=== PATIENT | male | born 1950 | race Caucasian/White ===

== ENCOUNTER 2019-11-08 12:18 | Outpatient (CLI) | payer MEDICARE ==
[~2019-11-08 12:18] MED LIST: APIX5TAB PO; ATOR10TA PO; ENAL10TA PO; FENO145T19 PO; SOTA80TA8 PO
== END 2019-11-08 23:59 | disposition home or self-care (01) ==
LOC: CFH 12:18
PROVIDERS: ATTEND Nurse Practitioner Family
DX: I65.29 Occlusion and stenosis of unspecified carotid artery (principal); I10 Essential (primary) hypertension
CPT/HCPCS: 78452; 93017; A9502

== ENCOUNTER 2020-01-06 14:30 | Inpatient (IN) | payer MEDICARE ==
[~2020-01-06] VITALS: Ht 188 cm; Wt 123.0 kg
[~2020-01-06 14:30] MED LIST changes: +ASCO10004 PO; +ASCO1CAP2 PO; +CALCIUM PO; +CHOL3000 PO; +ENAL5TAB PO; +FENO145T32 PO; +MAG PO; +OMEG-170 PO; +SAW/1TAB2 PO; +SILD20TA2 PO; +UBID100C10 PO; +VITAMIN E PO; +ZINC PO; +ZOLP-413 PO
[2020-01-06] MEDS ORDERED: LACTATED RINGERS 1,000 ML IV SCH (14:42)
[2020-01-06] MEDS ORDERED: MIDAZOLAM 1 MG/ML, 2ML ONE (14:44)
[2020-01-06] MEDS ORDERED: CHLORHEXIDINE 15 ML UDC MM STA (14:48)
[2020-01-06] MEDS ORDERED: BUPIVACAINE/PF-EPI 0.5% 1:200K ONE (15:01)
[2020-01-06] MEDS ORDERED: PAPAVERINE 30 MG/ML, 2ML ONE (15:01)
[2020-01-06] MEDS ORDERED: FENTANYL PF 250 MCG/5ML ONE (15:01)
[2020-01-06] MEDS ORDERED: PROTAMINE SULFATE 10 MG/ML, 5ML ONE (15:01)
[2020-01-06] MEDS ORDERED: HEPARIN 1,000 UNITS/ML, 10ML ONE (15:01)
[2020-01-06] MEDS ORDERED: THROMBIN 20,000 UNIT VIAL TP ONE ×2 (15:01→22:57)
[2020-01-06] MEDS ORDERED: LIDOCAINE 1%, 20ML ONE (15:02)
[2020-01-06] MEDS ORDERED: BACITRACIN 50,000 UNIT ONE (15:02)
[2020-01-06] MEDS ORDERED: THROMBIN 5,000 UNIT VIAL TP ONE (18:23)
[2020-01-06] MEDS ORDERED: DEXAMETHASONE 4 MG/ML, 1ML ONE (20:05)
[2020-01-06] MEDS ORDERED: ONDANSETRON 2MG/ML, 2ML ONE (20:05)
[2020-01-06] MEDS ORDERED: EPHEDRINE 50 MG/ML, 1ML ONE (20:05)
[2020-01-06] MEDS ORDERED: PROPOFOL 10 MG/ML, 20ML ONE (20:05)
[2020-01-06] MEDS ORDERED: NEOSTIGMINE 1 MG/ML, 10ML ONE (20:05)
[2020-01-06] MEDS ORDERED: GLYCOPYRROLATE 0.2MG/1ML, 5ML ONE (20:05)
[2020-01-06] MEDS ORDERED: ROCURONIUM 10MG/ML,5ML ONE (20:05)
[2020-01-06] MEDS ORDERED: CEFAZOLIN 1,000 MG ONE (20:05)
[2020-01-06] MEDS ORDERED: SUCCINYLCHOLINE 20 MG/ML, 10ML ONE (20:05)
[2020-01-06] MEDS ORDERED: FENTANYL PF 100 MCG/2ML ONE ×3 (20:25→22:31)
[2020-01-06] MEDS ORDERED: LABETALOL 5MG/ML, 20ML IV PRN (20:30)
[2020-01-06] MEDS ORDERED: ONDANSETRON 2MG/ML, 2ML IV PRN (20:30)
[2020-01-06] MEDS ORDERED: OXYcodone 5 MG/5 ML ORAL.SOL UDC PO PRN (20:30)
[2020-01-06] MEDS ORDERED: ONDANSETRON ODT 8 MG PO PRN (20:30)
[2020-01-06] MEDS ORDERED: PROMETHAZINE 25 MG/ML, 1ML IV PRN (20:30)
[2020-01-06] MEDS ORDERED: hydrALAzine 20 MG/ML, 1ML IV PRN (20:30)
[2020-01-06] MEDS ORDERED: ACETAMINOPHEN 325 MG TABLET PO PRN (20:30)
[2020-01-06] MEDS ORDERED: PROMETHAZINE 25 MG SUPP PR PRN (20:30)
[2020-01-06] MEDS ORDERED: PROMETHAZINE 12.5 MG SUPP PR PRN (20:30)
[2020-01-06] MEDS ORDERED: SUGAMMADEX 200 MG/2 ML IVPush ONE (23:10)
[2020-01-06] MEDS: LACTATED RINGERS 1,000 ML IV SCH (23:48)
[2020-01-07] MEDS ORDERED: ACETAMINOPHEN 650 MG SUPP PR PRN
[2020-01-07] MEDS ORDERED: FENTANYL PF 100 MCG/2ML ONE (00:09)
[2020-01-07] MEDS ORDERED: OXYcodone 5 MG/5 ML ORAL.SOL UDC ONE (00:09)
[2020-01-07] MEDS: FENTANYL PF 100 MCG/2ML IV PRN ×2 (00:15→00:23)
[2020-01-07] MEDS ORDERED: HYDROmorphone 1 MG/ML, 1ML INJ ONE (00:58)
[2020-01-07] MEDS: HYDROmorphone 2 MG/ML, 1ML IVPush PRN ×3 (01:00→01:25)
[2020-01-07 02:29] VITALS: BP 115/73
[2020-01-07] MEDS: LOVENOX/APIXABAN MC SCH ×2 (02:30→10:30)
[2020-01-07] MEDS: CEFAZOLIN PMX 2GM/50ML 50 ML IVPB SCH ×2 (07:23→15:03)
[2020-01-07] MEDS: ENALAPRIL 5MG TABLET PO SCH (08:39)
[2020-01-07] MEDS ORDERED: ENOXAPARIN 40 MG/0.4 ML SQ SCH ×2 (11:30)
[2020-01-07] MEDS: LACTATED RINGERS 1,000 ML IV SCH (13:08)
[2020-01-07] MEDS ORDERED: TETRAHYDROZOLINE OPHTH 0.05% 15ML RIGHTEYE PRN (17:30)
[2020-01-07 19:01] VITALS: BP 113/69
[2020-01-07] MEDS ORDERED: APIXABAN 5 MG TABLET PO SCH (21:00)
[2020-01-07] MEDS ORDERED: ATORVASTATIN 10 MG TABLET PO SCH (21:00)
[2020-01-07] MEDS ORDERED: FENOFIBRATE 145 MG TABLET PO SCH (21:00)
[2020-01-07] MEDS: APIXABAN 5 MG TABLET PO SCH (21:08)
[2020-01-08 00:47] VITALS: BP 109/66
[2020-01-08] MEDS: LACTATED RINGERS 1,000 ML IV SCH (02:28)
[2020-01-08 05:37] LABS: CHOL/HDL RATIO 2.1; LDL/HDL RATIO 0.6 (0.5-3.0)
[2020-01-08 08:06] VITALS: BP 102/62
[2020-01-08] MEDS: APIXABAN 5 MG TABLET PO SCH (08:12)
[2020-01-08] MEDS: ENALAPRIL 5MG TABLET PO SCH (09:00)
[2020-01-08] MEDS ORDERED: OXYC5TAB2 PO (09:34)
== END 2020-01-08 11:10 | disposition home or self-care (01) | DRG 39 ==
LOC: ORIP 14:30 → MERGE 14:30 → 4NE 01-07 01:52
PROVIDERS: ADMIT Surgery; ATTEND Surgery
PROC: 03CH0ZZ Extirpation of Matter from Right Common Carotid Artery, Open Approach (ICD-10-PCS; principal; 2020-01-07)
PROC: 03CM0ZZ Extirpation of Matter from Right External Carotid Artery, Open Approach (ICD-10-PCS; 2020-01-07)
PROC: 03UH0JZ Supplement Right Common Carotid Artery with Synthetic Substitute, Open Approach (ICD-10-PCS; 2020-01-07)
PROC: 03UM0JZ Supplement Right External Carotid Artery with Synthetic Substitute, Open Approach (ICD-10-PCS; 2020-01-07)
PROC: 5A09357 Assistance with Respiratory Ventilation, Less than 24 Consecutive Hours, Continuous Positive Airway Pressure (ICD-10-PCS; 2020-01-08)
DX: I65.21 Occlusion and stenosis of right carotid artery (principal); I48.91 Unspecified atrial fibrillation; I10 Essential (primary) hypertension; E78.5 Hyperlipidemia, unspecified; I25.10 Atherosclerotic heart disease of native coronary artery without angina pectoris; I65.22 Occlusion and stenosis of left carotid artery; Z85.828 Personal history of other malignant neoplasm of skin; G47.30 Sleep apnea, unspecified; Z98.890 Other specified postprocedural states; G45.9 Transient cerebral ischemic attack, unspecified; Z82.49 Family history of ischemic heart disease and other diseases of the circulatory system; Z80.8 Family history of malignant neoplasm of other organs or systems; Z82.3 Family history of stroke
CPT/HCPCS: 36415; 71045; 80061; 88305; G0378; J0690; J1100; J1170; J1644; J1650; J2250; J2405; J2704; J2710; J2720; J3010; C1781; J0330; J2440; J7120